=== PATIENT | male | born 1995 | race African-American/Black ===

== ENCOUNTER 2018-11-13 04:00 | Emergency (ER) | payer BC, OTHER ==
[~2018-11-13] VITALS: Ht 180.3 cm; Wt 79.4 kg
--- NOTE | 2018-11-13 04:37 | NUR ---
RING CUTTER AND DRIMMEL USED TO REMOVE RING.
--- NOTE | 2018-11-13 04:46 | ED Upper Extremity ---
General Chief Complaint: Upper Extremity Stated Complaint: RT PINKIE RING STUCK ON FINGER Nursing Triage Note: AMBULATORY TO ED WITH C/O RING STUCK ON 5TH FINGER OF RIGHT HAND. FINGER VERY SWOLLEN. STATES HE WAS WEARING RING ALL DAY, OUT AT BAR TONIGHT AND NOTICED FINGER BECOMING SWOLLEN, BUT RING WOULD NOT COME OFF, HE HAS TRIED ICING FINGER , ELEVATING HAND, THE THREAD TECHNIQUE ETC AND STILL UNABLE TO GET RING OFF FINGER. Nursing Sepsis Screen: No Definite Risk Source: patient Exam Limitations: no limitations History of Present Illness Date Seen by Provider: Nov 13, 2018 Time Seen by Provider: 04:07 Initial Comments Here with report of ring and pinky finger that will come off. He put on yesterday and had no problems and then it got stuck. Notes the finger is swollen. He's tried ice, dental floss, elevation and coconut well to try to get it off and it won't come off. Onset: this morning Severity: moderate Pain/Injury Location: right 5th finger Modifying Factors: Worse With Movement Allergies and Home Medications Patient Home Medication List Home Medication List Reviewed: Yes Review of Systems Constitutional: no symptoms reported Respiratory: no symptoms reported Cardiovascular: no symptoms reported Musculoskeletal: joint swelling, muscle pain Skin: no symptoms reported Past Kyqhbul-Yykclu-Yxqqcx Hx Past Med/Social Hx: Reviewed Nursing Past Med/Soc Hx Patient Social History Alcohol Use: Occasionally Uses Recreational Drug Use: No Smoking Status: Light Tobacco Smoker Recent Foreign Travel: No Contact w/Someone Who Travel: No Recent Infectious Disease Expo: No Recent Hopitalizations: No Seasonal Allergies Seasonal Allergies: No Past Medical History Surgeries: Yes ("RUPTURED INTESTINES AT 8 YRS OLD") Respiratory: No Cardiac: No Neurological: No Genitourinary: No Gastrointestinal: No Musculoskeletal: No Endocrine: No HEENT: No Cancer: No Psychosocial: No Integumentary: No Blood Disorders: No Family Medical History Reviewed Nursing Family Hx Physical Exam Vital Signs Vital Signs - First Documented 11/13/18 04:02 Temp 98.3 Pulse 103 Resp 18 B/P (MAP) 151/106 (121) Capillary Refill : Less Than 3 Seconds Height, Weight, BMI Height: 5'11.00" Weight: 175lbs. oz. 79.700898ce; BMI Method:Stated General Appearance: WD/WN, no apparent distress Cardiovascular: regular rate, rhythm, no murmur Respiratory: lungs clear, normal breath sounds Hand: Right, swelling (fifth finger swollen with ring causing some constriction.) Neurologic/Psychiatric: alert, oriented x 3 Skin: warm/dry, other (erythema noted to the right fifth finger past the ring constriction) Progress/Results/Core Measures Results/Orders Vital Signs/I&O 11/13/18 04:02 Temp 98.3 Pulse 103 Resp 18 B/P (MAP) 151/106 (121) Blood Pressure Mean: 121 Progress Progress Note : Progress Note Seen and evaluated. Ring cut off with ring cutter and then ultimately dribble tools the ring is titanium. No injury to the finger during removal. Full range of motion and no deficit with no injury afterwards. Discharged home with return precautions. Patient verbalize understanding instructions and agreement with plan. Departure Impression Primary Impression: Ring or other jewelry causing external constriction, initial encounter Disposition: 01 HOME, SELF-CARE Condition: Improved Departure-Patient Inst. Decision time for Depature: 04:45 Referrals: [facility] (PCP/Family) Primary Care Physician Patient Instructions: Hand Pain (DC) Add. Discharge Instructions: All discharge instructions reviewed with patient and/or family. Voiced understanding. You may use ibuprofen or Tylenol as needed for pain. You may need to use ice packs on your finger to reduce swelling 20 minutes per hour as needed today. Follow-up with your doctor as needed. Return for other concerns as needed. MEHDI CIFUENTES MD Nov 13, 2018 04:46
[2018-11-13 04:48] VITALS: BP 135/90
== END 2018-11-13 04:49 | disposition home or self-care (01) ==
LOC: ER 04:04
DX: S60.444A External constriction of right ring finger, initial encounter (principal); F17.200 Nicotine dependence, unspecified, uncomplicated; W49.04XA Ring or other jewelry causing external constriction, initial encounter
CPT/HCPCS: 99282